=== PATIENT | male | born 1995 | race African-American/Black ===

== ENCOUNTER 2019-11-17 09:32 | Emergency (ER) | payer OTHER | END 2019-11-17 12:15 | disposition home or self-care (01) | LOC: ERS 09:32 | DX: J02.9 Acute pharyngitis, unspecified (principal); F17.210 Nicotine dependence, cigarettes, uncomplicated; Z20.828 Contact with and (suspected) exposure to other viral communicable diseases | CPT/HCPCS: 87635; 99283; U0003 ==

== ENCOUNTER 2022-09-13 11:57 | Emergency (ER) | payer OTHER ==
[2022-09-13] MEDS ORDERED: Lidocaine 1% PF 5 ML VIAL ONE ×2 (13:04→13:05)
[2022-09-13] MEDS ORDERED: Boostrix 0.5 ML (Tdap) VIAL (>/=7 yrs of age) ONE (14:12)
== END 2022-09-13 15:30 ==
LOC: ERS 11:57 → EEVIPCON 11:57 → ERS 15:30
DX: S68.626A Partial traumatic transphalangeal amputation of right little finger, initial encounter (principal); W28.XXXA Contact with powered lawn mower, initial encounter; Z23 Encounter for immunization
CPT/HCPCS: 12001; 90471; 90715